=== PATIENT | male | born 1980 | race Hispanic/Latino ===

== ENCOUNTER 2018-08-24 07:25 | Day surgery (SDC) | payer BC ==
[~2018-08-24] VITALS: Ht 170.2 cm; Wt 54.9 kg
[~2018-08-24 07:25] MED LIST: OMEPRAZOLE20 MG PO
--- NOTE | 2018-08-24 09:12 | NUR ---
08/24/18 0912 Amanda Larkin 0856-PT TO PACU ON 3L NC. DC ON ARRIVAL. . ARROUSABLE TO TACTILE STIMULI. SPO2 >95% ON RA, BREATHING UNLABORED. PT SLEEPING NO N/V. 0905- PT SLEEPING. SPO2 >95% ON RA. N/V. ARROUSES TO VOICE. 0911- DR CUNNINGHAM TALKING WITH PT AT BEDSIDE. PT STATES NO PAIN N/V. WATER PROVIDED.
--- NOTE | 2018-08-24 20:09 | OR ---
[facility] [address], [place] [address] Signed DATE OF OPERATION: 08/24/2018 SURGEON: Rodney Cunningham MD PREOPERATIVE DIAGNOSES: 1. History of Helicobacter pylori gastritis and known history of reflux disease. 2. Family history of gastric cancer (identical twin brother). POSTOPERATIVE DIAGNOSES: Mild gastritis and distal esophagitis. No evidence of neoplasm or ulceration. PROCEDURE PERFORMED: Esophagogastroduodenoscopy with biopsy. ANESTHESIA: Intravenous sedation, fentanyl 100 mcg, Versed 5 mg. INDICATION: This 37-year-old man is a patient of Radha Hernandez. He had an identical twin brother who of gastric cancer at young age (36 years). The patient himself has undergone upper endoscopy by me in the past. He was noted to have H pylori, which was treated. He has had test of cure and has also known episodes of reflux disease. He currently is doing quite well, having no need for medication for reflux or abdominal pain. He is admitted for surveillance upper endoscopy given his family history. The risks of bleeding, infection, and perforation related to upper endoscopy was reviewed with him. He understands and wished to proceed. FINDINGS: Mild distal esophagitis was noted, but without stricture or signs of Parker's epithelium. The flap valve was reasonably normal on evaluation. The stomach itself had minimal edema and minimal gastritis, but no sign of ulceration proper and certainly no neoplasm. The duodenum was normal as well. CLOtest was -20 minutes post procedure. DESCRIPTION OF PROCEDURE: The patient was brought to the endoscopy suite and placed in lateral decubitus position after undergoing topical lidocaine spray anesthesia. He was given intravenous sedation to the point of slurred speech and nystagmus with full cardiopulmonary monitoring. A bite block was placed. An Olympus video upper endoscope was passed in the hypopharynx. The vocal cords appeared normal. Scope was advanced in the esophagus throughout its length. It was normal except in the distal portion where there was mild inflammation, Electronically Signed By: RODNEY CUNNINGHAM MD 08/24/182008 PATIENT NAME: ANTHONY AMEZCUA OPERATIVE REPORT DATE OF : 76 REPORT #: [id number] PHYSICIAN: RODNEY CUNNINGHAM MD PCP: RADHA HERNANDEZ PAC REPORT IS CONFIDENTIAL AND NOT TO BE RELEASED WITHOUT AUTHORIZATION [facility] [address], [place] [address] Signed but no sign of Parker's epithelium. Scope was advanced to the stomach, which was insufflated with air. Rugal folds were reasonably normal. Pylorus and pre-pyloric area had mild erosive change. The scope was passed through the pylorus into the duodenum, which was normal. Biopsies were taken there to assess for celiac disease. The scope was withdrawn and biopsies were then taken of the antrum for both BRONWYN and pathologic testing. Retroflexed view showed a reasonably good flap valve. The proximal stomach had mild gastritis. Additional biopsies were taken there for CLOtest biopsies as well. The scope was straightened and withdrawn. Biopsies taken of the distal esophagus. Remaining esophagus appeared normal. No further biopsies were required. The scope was removed. The patient was taken to recovery room in good condition. CONCLUDING DIAGNOSIS: No evidence of clinical reflux esophagitis pain or gastritis pain. Endoscopic findings suggest mild inflammation in both areas. PLAN: Continued clinical observation will be most appropriate in his situation. I would like to see him back in one year for followup regarding his reflux. MD NILAM Ratliff/GINNYL /[id number] cc: Radha Hernandez PA-C Copies: RADHA HERNANDEZ ~ Electronically Signed By: RODNEY CUNNINGHAM MD 08/24/18 2009 PATIENT NAME: ANTHONY AMEZCUA NOELLE OPERATIVE REPORT DATE OF : 76 REPORT #: [id number] PHYSICIAN: RODNEY CUNNINGHAM MD PCP: RADHA HERNANDEZ REPORT IS CONFIDENTIAL AND NOT TO BE RELEASED WITHOUT AUTHORIZATION
== END 2018-08-24 09:45 | disposition home or self-care (01) ==
LOC: OPS 07:25 → DS 07:25 → OPS 08:30
PROVIDERS: Surgery
PROC: 0DB78ZX Excision of Stomach, Pylorus, Via Natural or Artificial Opening Endoscopic, Diagnostic (ICD-10-PCS; 2018-08-24)
PROC: 0DB38ZX Excision of Lower Esophagus, Via Natural or Artificial Opening Endoscopic, Diagnostic (ICD-10-PCS; 2018-08-24)
PROC: 0DB98ZX Excision of Duodenum, Via Natural or Artificial Opening Endoscopic, Diagnostic (ICD-10-PCS; principal; 2018-08-24 08:30)
DX: K29.50 Unspecified chronic gastritis without bleeding (principal); Z98.890 Other specified postprocedural states; Z86.19 Personal history of other infectious and parasitic diseases; Z87.19 Personal history of other diseases of the digestive system; Z80.0 Family history of malignant neoplasm of digestive organs
CPT/HCPCS: 99153; G0500; J2250; J3010

== ENCOUNTER 2023-04-28 03:30 | Emergency (ER) | payer BC, SELFPAY ==
[~2023-04-28] VITALS: Ht 170.2 cm; Wt 63.9 kg
[2023-04-28] MEDS ORDERED: KETOROLAC TROMETHAMINE 30 MG/ML VIAL IV ONE (03:45)
[2023-04-28 03:55] LABS: RDW 13.2 (10.5-15.0)
[2023-04-28 03:57] LABS: BASOPHILS 0.8 % (0-2); EOSINOPHILS 0.2 % (0-6); HEMATOCRIT 52.6 % (35.0-50.0); HEMOGLOBIN 17.7 g/dL (12.0-18.0); LYMPHOCYTES 26.1 % (24-44); MCH 29.9 (27-36); MCHC 33.6 g/dl (30-36); MCV 88.9 fl (81-99); MONOCYTES 12.5 % (0-12); NEUTROPHILS 60.4 % (39-80); PLATELET COUNT 203 K/uL (140-440); RBC 5.91 M/ul (4.3-5.7)
[2023-04-28 04:08] LABS: ALBUMIN 3.8 g/dL (3.4-5.0); ALBUMIN/GLOBULIN RATIO 0.9 (1.1-2.4); ANION GAP 11.1 (7-21); BILIRUBIN, TOTAL 0.4 ng/dL (0.2-1.0); BUN/CREATININE RATIO 9.4 (6.0-28.6); CALCIUM 8.9 mg/dL (8.5-10.1); CREATININE, SERUM 1.17 mg/dL (0.70-1.30); POTASSIUM 4.1 mmol/L (3.5-5.1)
[2023-04-28 04:27] LABS: BILIRUBIN, URINE NEGATIVE (negative); BLOOD/HGB, URINE MODERATE (Negative); KETONE, URINE NEGATIVE (Negative); LEUK ESTERASE, URINE NEGATIVE (negative); NITRITE, URINE NEGATIVE (negative); PH, URINE 7.5 (5-7)
[2023-04-28 04:29] LABS: INFLUENZA B NAA NEGATIVE (NEGATIVE); RESPIRATORY SYNCYTIAL VIR NAA NEGATIVE (NEGATIVE)
[2023-04-28 04:32] LABS: EPITHELIAL CELLS, URINE SQUAMOUS 1+ /lpf (0-1+)
[2023-04-28 04:33] LABS: CRYSTALS, URINE NONE SEEN (0-1+); RED BLOOD CELLS, URINE 41-50 /hpf (0-5); WHITE BLOOD CELLS, URINE 0-1 /HPF (0-5)
[2023-04-28 04:34] LABS: BACTERIA, URINE RARE /hpf (negative); CASTS, URINE NONE SEEN \\lpf; REFLEX CULTURE, URINE No (No)
[2023-04-28 05:24] VITALS: BP 127/73
== END 2023-04-28 05:25 | disposition home or self-care (01) ==
LOC: ED 03:30
PROVIDERS: Emergency Medicine
DX: R10.9 Unspecified abdominal pain (principal); J10.1 Influenza due to other identified influenza virus with other respiratory manifestations
CPT/HCPCS: 36415; 71046; 74176; 80053; 81001; 85025; 87502; 96374; 99284-25; J1885; U0002

== ENCOUNTER 2024-01-18 08:10 | Emergency (ER) | payer OTHER, BC ==
[~2024-01-18] VITALS: Ht 348 cm; Wt 62.1 kg
[2024-01-18 08:52] VITALS: BP 115/71
== END 2024-01-18 08:52 | disposition home or self-care (01) ==
LOC: ED 08:10
DX: M54.50 Low back pain, unspecified (principal); X50.0XXA Overexertion from strenuous movement or load, initial encounter
CPT/HCPCS: 99283